=== PATIENT | male | born 1960 | race Caucasian/White ===

== ENCOUNTER → 2019-05-02 17:29 | Outpatient (CLI) | payer BC, SELFPAY ==
[2019-05-02 18:28] LABS: ALB/GLOB Ratio 1.3 RATIO (0.9-2.4); AST(SGOT) 26 U/L (15-37); Alanine Aminotransfer ALT/SGPT 35 U/L (16-61); Albumin, Serum 3.9 g/dL (3.2-5.0); Alkaline Phosphatase 85 U/L (45-117); Anion Gap 6 (5-15); BUN 19 mg/dL (7-18); BUN/Creat Ratio 25.6 RATIO (10-20); Chloride 107 mmol/L (98-107); Creatinine, Serum 0.74 mg/dL (0.70-1.30); EST Glomerular Filtration Rate 115 mL/min (>60); Est Glom Filt Rate - Afr Amer 139 mL/min (>60); Glucose 88 mg/dL (74-106); Magnesium 2.1 mg/dL (1.6-2.6); Potassium 4.3 mmol/L (3.5-5.1); Protein, Total 6.9 g/dL (6.4-8.2); Sodium Level 139 mmol/L (136-145); Thyroid Stim Hormone (TSH) 1.65 uIU/mL (0.358-3.74)
[2019-05-02 18:40] LABS: Digoxin Level 0.91 ng/mL (0.80-2.00)
== END ==
PROVIDERS: Family Provider Family Medicine; PCP Family Medicine; Referring Provider Family Medicine; Visit Provider Family Medicine
DX: R00.1 Bradycardia, unspecified (principal)
CPT/HCPCS: 80053; 80162; 83735; 84443

== ENCOUNTER → 2020-05-03 16:13 | Outpatient (CLI) | payer BC, SELFPAY ==
[2015-01-26 12:19] VITALS: BMI 30.7
== END ==
PROVIDERS: PCP Family Medicine; Referring Provider Family Medicine; Visit Provider Family Medicine
DX: Z20.828 Contact with and (suspected) exposure to other viral communicable diseases (principal)
CPT/HCPCS: 87635; U0003

== ENCOUNTER → 2021-02-14 15:49 | Outpatient (CLI) | payer BC, SELFPAY ==
--- NOTE | 2021-02-14 16:00 | RAD_ITS ---
STUDY: X-RAY - RIGHT SHOULDER REASON FOR EXAM: Male, 60 years old. RT SHOULDER JOINT CREPITUS TECHNIQUE: 4 view(s) of the shoulder. COMPARISON: None. FINDINGS: Normal glenohumeral articulation. Normal acromioclavicular joint. Normal acromion. Normal humeral head and visualized proximal humerus. The soft tissue structures are unremarkable. Normal visualized pulmonary apex. RAD/Shoulder min 2 Views IMPRESSION: Normal x-ray examination of the shoulder. Electronically Signed: Juwan Shankar MD at 6:14 EDT Tel , Service support ,
== END ==
PROVIDERS: PCP Family Medicine; Referring Provider Registered Nurse; Visit Provider Registered Nurse
DX: M24.811 Other specific joint derangements of right shoulder, not elsewhere classified (principal)
CPT/HCPCS: 73030

== ENCOUNTER 2021-03-11 18:00 | Outpatient (RCR) | payer BC, SELFPAY ==
--- NOTE | 2021-02-25 18:18 | HP.PTEVAL ---
Patient's Visit Information MAXIMINO KOWALSKI is a 60 year old M referred to Physical Therapy by AYSHA Sellers with a diagnosis of R shoulder derangement.. Date of Evaluation: 02/25/21 Physical Therapist: Klaus Mendez, DPT, OCS, CSCS - Visit Plan Frequency: 1-2x /Week Duration: 4-6 Weeks Plan: 1-2x/week for 4 weeks for : start weekly for progression of today's activity modification to phase 3 strength/pec stretch and eventual elevation and postural strenght and RC to tolerance. May increase frequency and use US, manual if needed. - Subjective Pain in R shoulder for quite some time up to 3 months. Questionable onset but did cut down a tree adn have some pain that night. Aggravating pain since to 4/10 at times mostly 1/10. Lifting heavy objects. Throwing a baseball helps to loosen it up. Sometimes it qakes him up at night if he sleeps on it wrong. Works at [employer] with hands all day and has to be careful but it goes OK. Not missed work. Basic ADLs are getting done. Hobbies include [employer] he can do. - Pain R anterior shoulder Pain Intensity (Out of 10): 1 Pain Intensity Range: 1, 4 - Objective Posture is forward head and anterior scapula. Tender to palpation in R supraspinatus insertion moderately adn biceps tendon minimially. AROM B shoulders elbows and wrists WFL, some minor pain end range of R Int rotation and flexion. + HK and + neer impingement test on R. - empty can. - ext rotation lag test adn drop arm test. reflexes 2/3 bi and tri. Sensation UE WNL to gross light touch B UE. Cervical aROM WFL and without pain, symmetrical. Strength is 4+/5 in all UE shoulder and elbow movements except ext rotation R which is 3+ and painful, and R biceps 4- and some pain. - Balance/Special Test Scores Quick DASH Score: 25.0000 - Goals Goal 1:: Pt feel pain 90% better and 1/10 at worst, manageable with ex. Goal Time Frame: 2-4 Weeks Goal 2:: Reach behind and OH without paoin Goal Time Frame: 4-6 Weeks Goal 3:: Sleep without interruption at night due to pain Goal Time Frame: 4-6 Weeks Goal 4:: Pt able to work full day without increased pain Goal Time Frame: 4-6 Weeks - Rehabilitation Potential Physical Therapy Diagnosis: R shoulder pain, likely impingement tendonitis. Rehabilitation Potential: Fair - Anticipated Interventions Patient/Client Instruction: Educate patient on: Condition, Plan of Care For the Purpose of:: To decrease pain, To improve muscle performance and motor function, To increase tolerance to activity/condition/position, To improve ability of physical actions for home/community/work/leisure Therapeutic Exercise to Include: Strength training, Postural training, Flexibilty training, Passive ROM, Active ROM, Scapular Strength/Stabilization For the Purpose of:: To decrease pain, To increase ROM, To improve muscle performance and motor function, To increase tolerance to activity/condition/position Manual Therapy Techniques to Include: Mobilization For the Purpose of:: To decrease swelling/inflammation, To improve nutrient delivery to tissue Thank you for the opportunity to evaluate your patient. For Medicare and Medicare HMO plans, please review the plan of care and approve it. It will need to be FAXED BACK to us at [phone] for Medicare purposes. For Medicare only, by signing this I certify the plan of care. Please let me know if there are questions or concerns regarding this plan of care. Physician Signature: Date:
--- NOTE | 2021-05-09 08:12 | HP.PT.NRP ---
MAXIMINO KOWALSKI was seen in my office for initial evaluation on 02/25/21. The following Plan of Care was established for this patient: Initial Frequency: 1-2x /Week Initial Duration: 4-6 Weeks Patient/Client Instruction: Educate patient on: Condition, Plan of Care For the Purpose of:: To decrease pain, To improve muscle performance and motor function, To increase tolerance to activity/condition/position, To improve ability of physical actions for home/community/work/leisure Therapeutic Exercise to Include: Strength training, Postural training, Flexibilty training, Passive ROM, Active ROM, Scapular Strength/Stabilization For the Purpose of:: To decrease pain, To increase ROM, To improve muscle performance and motor function, To increase tolerance to activity/condition/position Manual Therapy Techniques to Include: Mobilization For the Purpose of:: To decrease swelling/inflammation, To improve nutrient delivery to tissue This patient was last seen in our office 03/11/21. Pertinent comments regarding their Physical therapy will appear below: Pt seen 3 visits of progression of HEP and was not feeling much better. HE did not attend his final visit and neglected to reschedule. at this point, it has been nearly two months and I will discontinue due to nonattendance. At this point I will be discontinuing this patient from physical therapy. I would be happy to see this patient again in the future if found appropriate by the physician. Thank you! Klaus Mendez, DPT, OCS, CSCS Balance/Gait/Functional tests - Balance/Special Test Scores Quick DASH Score: 25.0000
== END 2021-03-11 19:00 | disposition home or self-care (01) ==
LOC: PT 18:00
PROVIDERS: PCP Family Medicine; Referring Provider Registered Nurse; Visit Provider Registered Nurse
DX: M24.811 Other specific joint derangements of right shoulder, not elsewhere classified (principal)
CPT/HCPCS: 97110; 97161

== ENCOUNTER → 2023-11-04 | Outpatient (CLI) | payer BC, SELFPAY ==
[2023-11-04 17:50] LABS: Hematocrit 44.8 % (40-54); Hemoglobin 14.8 g/dL (13.0-16.5); Mean Corpuscular Hgb 32.5 pg (27.0-32.0); Mean Corpuscular Volume 98.5 fL (80-94); Mean Platelet Vol. 11.8 fl (6.2-12.0); Platelet Count 188 K/mm3 (150-450); RBC Distribution Width CV 13.6 % (11.6-14.6); RBC Distribution Width SD 49.6 fl (35.1-43.9); Red Blood Count 4.55 M/mm3 (4.6-6.2); White Blood Count 8.2 K/mm3 (4.4-11.0)
[2023-11-04 18:04] LABS: Hemoglobin A1c 5.4 % (3.8-5.6)
[2023-11-04 18:35] LABS: ALB/GLOB Ratio 1.1 RATIO (0.9-2.4); AST(SGOT) 32 U/L (15-37); Alanine Aminotransfer ALT/SGPT 32 U/L (16-61); Albumin, Serum 3.7 g/dL (3.2-5.0); Alkaline Phosphatase 90 U/L (45-117); Anion Gap 7 (5-15); BUN 16 mg/dL (7-18); BUN/Creat Ratio 22.3 RATIO (10-20); Calcium,Total 9.4 mg/dL (8.5-10.1); Chloride 106 mmol/L (98-107); Cholesterol 101 mg/dL (200); Creatinine, Serum 0.72 mg/dL (0.70-1.30); EST Glomerular Filtration Rate 118 mL/min (>60); Est Glom Filt Rate - Afr Amer 143 mL/min (>60); Globulin 3.3 g/dL (2.2-4.2); Glucose 84 mg/dL (74-106); High Density Lipoprotein 46 mg/dL; Magnesium 2.1 mg/dL (1.6-2.6); Potassium 4.5 mmol/L (3.5-5.1); Sodium Level 140 mmol/L (136-145); T4 Free Direct 1.03 ng/dL (0.76-1.46); Thyroid Stim Hormone (TSH) 1.69 uIU/mL (0.358-3.74); Triglycerides 88 mg/dL; Very Low Density Lipoprotein 18 mg/dL (5-40)
[2023-11-04 18:46] LABS: International Normalized Ratio 2.4; Prothrombin Time (Protime)PT. 25.9 SECONDS (11.7-14.9)
[2023-11-08 18:07] LABS: Anti-Thyroglobulin AB < 1.0 IU/mL (0.0-0.9); Thyroglobulin, Serum Qt. 15.5 ng/mL (1.4-29.2); Thyroid Peroxidase AB 11 IU/mL (0-34)
== END | disposition home or self-care (01) ==
LOC: MFPLAB 16:53
PROVIDERS: PCP Family Medicine; Visit Provider Family Medicine
DX: I48.91 Unspecified atrial fibrillation (principal); E78.5 Hyperlipidemia, unspecified; E04.1 Nontoxic single thyroid nodule; R73.09 Other abnormal glucose
CPT/HCPCS: 80053; 80061; 83036; 83735; 84432; 84439; 84443; 85027; 85610; 86376; 86800

== ENCOUNTER → 2023-11-09 | Outpatient (CLI) | payer BC, SELFPAY ==
--- NOTE | 2023-11-09 15:10 | US_ITS ---
INDICATION: goiter EXAMINATION: Ultrasound US Thyroid (eg thyroid, parathyroid, parotid) TECHNIQUE: Fajardo scale and color doppler imaging was performed of the thyroid gland. TIRADS criteria was utilized. COMPARISON: None. FINDINGS: RIGHT THYROID LOBE: 5.2 x 2.3 x 1.9 cm with a volume of 12.1 mL. Homogeneous echotexture. Normal vascularity. No thyroid nodules. LEFT THYROID LOBE: 4.5 x 2.1 x 2.1 with a volume of 10.2 mL. Homogeneous echotexture. Normal vascularity. No thyroid nodules. ISTHMUS: 3 mm in AP diameter Homogeneous echotexture. Normal vascularity. No thyroid nodules. US/Head/Neck Soft Tissue IMPRESSION: Thyromegaly. No thyroid nodules. Electronically Signed: Vinny Zapata DO at 5:15 EDT ,
== END | disposition home or self-care (01) ==
PROVIDERS: PCP Family Medicine; Referring Provider Family Medicine; Visit Provider Family Medicine
DX: E04.1 Nontoxic single thyroid nodule (principal)
CPT/HCPCS: 76536

== ENCOUNTER → 2024-04-03 | Outpatient (CLI) | payer BC, SELFPAY ==
--- NOTE | 2024-04-03 14:52 | RAD_ITS ---
EXAM: XR CHEST, 2 VIEWS CLINICAL INDICATION: cough TECHNIQUE: Frontal and lateral views of the chest. COMPARISON: January 20, 2014 FINDINGS: LUNGS AND PLEURAL SPACES: Unremarkable. No consolidation or edema. No pneumothorax. No effusion. HEART: Unremarkable. Cardiac silhouette not enlarged. MEDIASTINUM: Central airways and mediastinal contour are unremarkable. BONES/JOINTS: Mild multilevel spondylosis and endplate sclerosis at mid thoracic body levels, increased from 2014. New right glenohumeral prosthesis since 2013, not fully included but appears adequately positioned. No acute fracture. SOFT TISSUES: Unremarkable. RAD/Chest PA and Lateral IMPRESSION: No acute findings in the chest. Electronically Signed: Conchita Agrawal MD at 2:27 EST ,
== END | disposition home or self-care (01) ==
PROVIDERS: PCP Family Medicine; Referring Provider Family Medicine; Visit Provider Family Medicine
DX: R05.8 Other specified cough (principal)
CPT/HCPCS: 71046

== ENCOUNTER → 2024-04-25 | Outpatient (CLI) | payer BC, SELFPAY ==
[2024-04-25 18:25] LABS: PSA,Total - Annual Screen 1.09 ng/mL (0.00-4.00)
== END | disposition home or self-care (01) ==
PROVIDERS: PCP Family Medicine; Referring Provider Family Medicine; Visit Provider Family Medicine
DX: Z12.5 Encounter for screening for malignant neoplasm of prostate (principal)
CPT/HCPCS: 36415; 84153; G0103

== ENCOUNTER → 2024-08-22 | Outpatient (CLI) | payer BC, SELFPAY ==
[2024-08-22 17:46] LABS: Absolute Lymphocyte Count 1.61 X10^3/uL (0.83-4.51); Absolute Neutrophil Count 6.6 X10^3/uL (2.0-7.7); Basophil# 0.05 X10^3/uL; Basophil% 0.5 % (0-1); Eosinophils% 2.1 % (0-5); Hematocrit 45.8 % (40-54); Hemoglobin 15.5 g/dL (13.0-16.5); Lymphocyte # 1.61 X10^3/ul (0.83-4.51); Lymphocyte % 17.1 % (19-41); Mean Corp Hgb Conc 33.8 g/dL (32-36); Mean Corpuscular Hgb 33.3 pg (27.0-32.0); Mean Corpuscular Volume 98.3 fL (80-94); Mean Platelet Vol. 11.5 fl (6.2-12.0); Monocyte# 0.93 X10^3/uL; Monocyte% 9.9 % (0-10); NRBC Flagged by Analyzer 0 % (0-5); Neutrophil # 6.59 X10^3/uL (2.7-7.7); Neutrophil % 70.2 % (47-70); Platelet Count 189 K/mm3 (150-450); RBC Distribution Width CV 13.7 % (11.6-14.6); RBC Distribution Width SD 49.8 fl (35.1-43.9); Red Blood Count 4.66 M/mm3 (4.6-6.2); White Blood Count 9.4 K/mm3 (4.4-11.0)
[2024-08-22 21:30] LABS: ALB/GLOB Ratio 1.6 RATIO (0.9-2.4); AST(SGOT) 27 U/L (<=37); Alanine Aminotransfer ALT/SGPT 23 U/L (<=46); Albumin, Serum 4.3 g/dL (3.4-4.8); Alkaline Phosphatase 81 U/L (40-129); Anion Gap 11 (5-15); BUN 14 mg/dL (4-19); BUN/Creat Ratio 22.3 RATIO (10-20); Calcium,Total 9.2 mg/dL (7.6-11.0); Carbon Dioxide 22.3 mmol/L (21.0-32.0); Chloride 105 mmol/L (98-108); Cholesterol 140 mg/dL (<=200); Creatinine, Serum 0.64 mg/dL (0.70-1.20); EST Glomerular Filtration Rate 106 (>60); Globulin 2.7 g/dL (2.2-4.2); Glucose 94 mg/dL (70-99); High Density Lipoprotein 50 mg/dL; Low Density Lipoprotein Calc. 44 mg/dL; Potassium 4.2 mmol/L (3.3-5.1); Sodium Level 138 mmol/L (133-145); Total Bilirubin 0.29 mg/dL (0.00-1.30); Triglycerides 230 mg/dL; Very Low Density Lipoprotein 46 mg/dL (5-40); cholesterol:hdl ratio screen 2.82
== END | disposition home or self-care (01) ==
PROVIDERS: PCP Family Medicine; Referring Provider Family Medicine; Visit Provider Family Medicine
DX: I48.91 Unspecified atrial fibrillation (principal); E78.5 Hyperlipidemia, unspecified
CPT/HCPCS: 36415; 80053; 80061; 83735; 84443; 85025